=== PATIENT | male | born 1965 | race Caucasian/White ===

== ENCOUNTER 2017-04-02 23:22 | Inpatient (IN) | payer OTHER ==
--- NOTE | 2017-04-02 23:39 | ED ---
Psych HPI - General Source: patient, RN notes reviewed Mode of arrival: ambulatory Limitations: no limitations <Maurisio Montana - Last Filed: 04/03/17 02:29> <Bo Bone - Last Filed: 04/03/17 02:47> - General Stated Complaint: Mental Health Time Seen by Provider: 04/02/17 23:24 - History of Present Illness Initial Comments: 51-year-old male presents emergency Department chief complaint of psychiatric evaluation. Patient is brought to emergency department via EMS. Patient reportedly was having argument with his who called police. Patient reportedly made some threats that were about suicide. He states he is not suicidal states that he just made these during the argument. Patient states he is not depressed does have a history of anxiety which she takes Xanax 0.25 milligrams every morning. Patient states that he has no physical complaints this time. Denies any illicit drug use or alcohol abuse. (Maurisio Montana) Review of Systems ROS Other: All systems not noted in ROS Statement are negative. <Maurisio Montana - Last Filed: 04/03/17 02:29> ROS Other: All systems not noted in ROS Statement are negative. <Bo Bone - Last Filed: 04/03/17 02:47> ROS Statement: Those systems with pertinent positive or pertinent negative responses have been documented in the HPI. General Exam General appearance: alert, in no apparent distress Head exam: Present: atraumatic, normocephalic, normal inspection Eye exam: Present: normal appearance, PERRL, EOMI. Absent: scleral icterus, conjunctival injection, periorbital swelling ENT exam: Present: normal exam, normal oropharynx, mucous membranes moist, TM's normal bilaterally Neck exam: Present: normal inspection, full ROM. Absent: tenderness, meningismus, lymphadenopathy Respiratory exam: Present: normal lung sounds bilaterally. Absent: respiratory distress, wheezes, rales, rhonchi, stridor Cardiovascular Exam: Present: regular rate, normal rhythm, normal heart sounds. Absent: systolic murmur, diastolic murmur, rubs, gallop, clicks Neurological exam: Present: alert, oriented X3, CN II-XII intact Psychiatric exam: Present: normal affect, normal mood Skin exam: Present: warm, dry, intact, normal color. Absent: rash <Maurisio Motnana - Last Filed: 04/03/17 02:29> Medical Decision Making <Maurisio Montana - Last Filed: 04/03/17 02:29> <Bo Bone - Last Filed: 04/03/17 02:47> - Medical Decision Making On my interview, patient admits to being depressed and also admits suicidal ideation. I filed clinical certificate. I saw this patient in conjunction with the physician dental assistant. I performed independent history and physical exam. Agree with case management. (Bo Bone) - Lab Data Lab Results 04/03/17 Range/Units 00:35 Urine Opiates Screen Not Detected (NotDetected) Ur Oxycodone Screen Not Detected (NotDetected) Urine Methadone Screen Not Detected (NotDetected) Ur Propoxyphene Screen Not Detected (NotDetected) Ur Barbiturates Screen Not Detected (NotDetected) U Tricyclic Antidepress Not Detected (NotDetected) Ur Phencyclidine Scrn Not Detected (NotDetected) Ur Amphetamines Screen Not Detected (NotDetected) U Methamphetamines Scrn Not Detected (NotDetected) U Benzodiazepines Scrn Not Detected (NotDetected) Urine Cocaine Screen Not Detected (NotDetected) U Marijuana (THC) Screen Not Detected (NotDetected) Disposition <Maurisio Montana - Last Filed: 04/03/17 02:29> <Bo Bone - Last Filed: 04/03/17 02:47> Clinical Impression: Depression Disposition: ADMITTED IP TO THIS HOSP Condition: Stable
[2017-04-03] MEDS ORDERED: MAG HYDROX/AL HYDROX/SIMETH 30 ML CUP PO PRN (03:28)
[2017-04-03] MEDS ORDERED: LORazepam 1 MG TAB PO PRN (03:28)
[2017-04-03] MEDS ORDERED: MAGNESIUM HYDROXIDE 2,400 MG/10 ML CUP PO PRN (03:28)
[2017-04-03] MEDS ORDERED: ACETAMINOPHEN TAB 325 MG TAB PO PRN (03:28)
[2017-04-03] MEDS ORDERED: LORazepam 2 MG/ML SYRINGE IM PRN (03:34)
[2017-04-03] MEDS ORDERED: OLANZapine ODT 5 MG TAB PO PRN (03:36)
[2017-04-03 04:03] VITALS: BMI 29.0
[2017-04-03 09:01] LABS: Basophils % (A) 0 %; CH 32.3; CHCM 34.2; Eosinophils # (A) 0.1 k/uL (0-0.7); Eosinophils % (A) 2 %; HCT 50.5 % (39.0-53.0); HGB 17.3 gm/dL (13.0-17.5); Luc # (Auto) 0.14; Luc % (Auto) 2; Lymphocytes # (A) 1.5 k/uL (1.0-4.8); Lymphocytes % (A) 18 %; MCH 32.5 pg (25.0-35.0); MCHC 34.2 g/dL (31.0-37.0); MCV 94.9 fL (80.0-100.0); Mean Platelet Volume 6.6; Monocytes # (A) 0.7 k/uL (0-1.0); Monocytes % (A) 9 %; Neutrophils # (A) 5.8 k/uL (1.3-7.7); Neutrophils % (A) 70 %; RBC 5.31 m/uL (4.30-5.90); RDW 14.2 % (11.5-15.5); WBC 8.2 k/uL (3.8-10.6); WBC (Perox) 8.55
[2017-04-03 09:16] LABS: ALT 37 U/L (21-72); AST 32 U/L (17-59); Alkaline Phosphatase 79 U/L (38-126); Anion Gap 12 mmol/L; Blood Urea Nitrogen 6 mg/dL (9-20); Calcium 9.5 mg/dL (8.4-10.2); Carbon Dioxide 24 mmol/L (22-30); Chloride 107 mmol/L (98-107); Glucose 114 mg/dL (74-99); Non-African American GFR(MDRD) >60 (>60 ml/min/1.73 sqM); Potassium 4.3 mmol/L (3.5-5.1); Sodium 143 mmol/L (137-145); Total Bilirubin 0.9 mg/dL (0.2-1.3); Total Protein 7.5 g/dL (6.3-8.2)
[2017-04-03] MEDS: NICOTINE 14MG/24HR PATCH TRANSDERM SCH (09:56)
--- NOTE | 2017-04-03 10:11 | P.HP ---
Psychiatric H&P - . History & Physical: Allergies Allergy/AdvReac Type Severity Reaction Status Date / Time Codeine AdvReac Anaphylaxis Uncoded 04/03/17 03:23 Vital Signs Temp 96.8 F L 04/03/17 02:49 Pulse 87 04/03/17 02:49 Resp 18 04/03/17 02:49 BP 155/85 04/03/17 02:49 Pulse Ox 97 04/03/17 02:49 Intake & Output 04/02/17 04/03/17 04/03/17 18:59 06:59 18:59 Weight 97.1 kg Laboratory Last Values WBC 8.2 k/uL (3.8-10.6) 04/03/17 08:47 RBC 5.31 m/uL (4.30-5.90) 04/03/17 08:47 Hgb 17.3 gm/dL (13.0-17.5) 04/03/17 08:47 Hct 50.5 % (39.0-53.0) 04/03/17 08:47 MCV 94.9 fL (80.0-100.0) 04/03/17 08:47 MCH 32.5 pg (25.0-35.0) 04/03/17 08:47 MCHC 34.2 g/dL (31.0-37.0) 04/03/17 08:47 RDW 14.2 % (11.5-15.5) 04/03/17 08:47 Plt Count 218 k/uL (150-450) 04/03/17 08:47 Neutrophils % 70 % 04/03/17 08:47 Lymphocytes % 18 % 04/03/17 08:47 Monocytes % 9 % 04/03/17 08:47 Eosinophils % 2 % 04/03/17 08:47 Basophils % 0 % 04/03/17 08:47 Neutrophils # 5.8 k/uL (1.3-7.7) 04/03/17 08:47 Lymphocytes # 1.5 k/uL (1.0-4.8) 04/03/17 08:47 Monocytes # 0.7 k/uL (0-1.0) 04/03/17 08:47 Eosinophils # 0.1 k/uL (0-0.7) 04/03/17 08:47 Basophils # 0.0 k/uL (0-0.2) 04/03/17 08:47 Urine Opiates Screen Not Detected (NotDetected) 04/03/17 00:35 Ur Oxycodone Screen Not Detected (NotDetected) 04/03/17 00:35 Urine Methadone Screen Not Detected (NotDetected) 04/03/17 00:35 Ur Propoxyphene Screen Not Detected (NotDetected) 04/03/17 00:35 Ur Barbiturates Screen Not Detected (NotDetected) 04/03/17 00:35 U Tricyclic Antidepress Not Detected (NotDetected) 04/03/17 00:35 Ur Phencyclidine Scrn Not Detected (NotDetected) 04/03/17 00:35 Ur Amphetamines Screen Not Detected (NotDetected) 04/03/17 00:35 U Methamphetamines Scrn Not Detected (NotDetected) 04/03/17 00:35 U Benzodiazepines Scrn Not Detected (NotDetected) 04/03/17 00:35 Urine Cocaine Screen Not Detected (NotDetected) 04/03/17 00:35 U Marijuana (THC) Screen Not Detected (NotDetected) 04/03/17 00:35 Identifying Information: Mr. Nazario Slater is 51 year-old employed, male, lives with his , with past psychiatric history of anxiety disorder. The patient has been brought to ED last night by police after he verbalized suicidal threat in context of argument with his Chief complaint: "I am worried about losing my job" History of Present Illness: The patient has been brought in by ambulance last night after his called police because he verbalized suicidal threats in context of an argument with his . The patient explained that he found some visual text between his and her boss that made him think about his is cheating on him. He reports the text were private. Patient became very agitated and threatened to kill himself by saying "Do you want me to shoot myself." Patient explained he never meant to kill himself but it was more to get his attention and to feel she still cares about him. When patient arrived to ED he denies any thought to hurt himself or others but his didn't feel safe for him to come home. Patient was admitted initially involuntarily but I offered him to sing voluntarily and he accepted. Patient reports history of anxiety symptoms including times feeling tense, irritable, racing thoughts. He reports remote history of Panic attacks, but denies any history of social anxiety. Patient denies any symptoms of depression including depressed mood, feeling hopeless, worthless, or helpless. Patient denies sleep, or appetite disturbances. Patient denies lack of interest, or poor energy. Patient reported no suicidal thought, plans or intentions. Patient denies nightmares, flashbacks , hyper vigilance, avoidance behavior, or any specific phobias. Patient denied any current or prior episodes of manic symptoms, including episodes of: erratic uninhibited behavior, feeling grandiose or inflated self-esteem, flight of ideas , elated mood, or absence need to sleep due to increased goal directed activities. Patient denies any auditory/ visual / olfactory hallucinations. Pt denies paranoid ideations. No bizarre disorganized thoughts or behavior noticed, and no delusions could be elicited. Past Psychiatric History: Hospitalizations: Denies any prior psychiatric hospitalizations Medications Trials: Denies any prior trials of psychotropic medications besides has been placed on Xanax by his PCP for anxiety symptoms. He reports has been prescribed 0.5mg daily but he always take half tablet daily. Prior Psychiatrist: Denies Prior Psychotherapy: Denies Prior Suicidal attempts/ Thoughts: Denies Prior Self injurious behavior: Denies. Substance use history: The patient denies any history of substance use disorder and denies any prior treatment for alcohol or any drugs. He admitted to smoking cigarettes about half PPD for past 15 years Family history: He denies any family history of mental illness, suicidal acts, or substance use disorders. Social History: Current living situation: Lives with his Employment: Currently employed at 3 job due to financial burden Education: up to 11th grade Lutheran/ spiritual orientation: Pentecostalism Legal history: none Past history of trauma (physical/psychological/sexual): Pt denies history of abuse, or any psychological trauma. Past medical history: Coronary heart disease, stent 2008. Gall bladder removed Allergies: Codeine Mental status examination; Appearance: The patient appears stated age, dressed in hospital gown, no specific features. Gait/posture: Normal arm was swinging: No abnormal movements. Attitude and behavior: engaged, cooperative, fair eye contact. Motor activity: no psychomotor agitation Speech:normal rate, rhythm and articulation Mood: anxious Affect:constricted Thought form: goal-directed, linear, coherent. Thought content: Non-delusional, denies suicidal thoughts, denies homicidal thoughts, denies intentions or plans. Perception: Denies any auditory or visual hallucinations Attention: No impairment. Patient was able to repeat serial 7. Orientation: Patient patient was fully oriented to time place person and situation. Insight: Patient has fair insight about his psychiatric disorder. Judgment: Patient has fair judgment about his psychiatric treatment. History of Violence to self/others: Patient denies any history of violence or aggression toward self or others in the past 6 months. Patient strengths: Optimism to change Employment Housing Family support Patient weaknesses: Poor coping skills Limited social support Limited access to treatment Financial Formulation: This is a 51-year-old male with no prior history of psychiatric disorders besides anxiety, who presented to the ED after brought in by ambulance due to suicidal threat. The patient has no history of depression and no prior history of suicidal acts or thoughts. The patient apparently have multiple life stressors mainly financial burden and he had relationship problems with his . The patient in context of increased distress and argument with his about the text her boss was private messages he gets very agitated and threatened to kill himself to get his 's attention. The patient denies any suicidal thoughts and he denies any symptoms of depression or other mood disorders. Assessment and Diagnoses: Unspecified anxiety disorder Adjustment disorder Treatment/ plan: Patient has been admitted to inpatient psychiatric level of care for further monitoring and ensure safety. Contact and assess patient going back to is . Support patient with plan for aftercare including therapy and marriage counseling Check: as per unit routine Diet: Cardiac Lab ordered on admission: CMP, CBC, TSH - ordered, CBC reviewed UDS on admission- ordered and reviewed PSYCHIATRIC MEDICATIONS No psychiatric medications indicated at this time PRN medications: as per unit standards Non-psychiatric medications: As per medical team recommendations Psychoeducation about: Nature of psychiatric illnesses Adherence to treatment Participation in groups/ individual therapy, and other activities Consent obtained for treatment. 04/03/17 10:09
--- NOTE | 2017-04-03 14:24 | P.CONS ---
History of Present Illness - Reason for Consult Consult date: 04/03/17 Providers regarding CAD - History of Present Illness This 51-year-old gentleman with a past medical history of CAD stent myocardial infarction cholecystectomy being followed by Drs. Chavez in the outpatient setting was admitted for psychiatric evaluation. There is no history of chest pain palpitations shortness of breath. Occasional cough is reported. Patient continues smoke. Review of Systems REVIEW OF SYSTEMS: ENT: No diminished vision or hearing. CARDIOVASCULAR: Mentioned earlier. RESPIRATORY: Occasional cough. GI: No nauscea, vomiting or diarrhea. : No dysuria or retention. NERVOUS SYSTEM: No numbness or weakness. ALLERGY/IMMUNOLOGY: No asthma or hay fever. MUSCULOSKELETAL: As mentioned earlier. HEMATOLOGY/ONCOLOGY: No history of anemia. ENDOCRINE: No history of diabetes or hypothyroidism. CONSTITUTIONAL: As mentioned earlier. DERMATOLOGY: Negative. PSYCHIATRY: Mentioned earlier. RHEUMATOLOGY: Negative. Past Medical History Past Medical History: Myocardial Infarction ([place]) Last Myocardial Infarction Date:: 2009 History of Any Multi-Drug Resistant Organisms: None Reported Past Surgical History: Cholecystectomy Additional Past Surgical History / Comment(s): stent in heart Past Anesthesia/Blood Transfusion Reactions: No Reported Reaction Past Psychological History: Anxiety Smoking Status: Current every day smoker Past Alcohol Use History: None Reported Past Drug Use History: None Reported Medications and Allergies Home Medications Medication Instructions Recorded Confirmed Type Aspirin [Adult Low Dose Aspirin EC] 81 mg PO DAILY 04/03/17 04/03/17 History Multivitamins, Thera [Multivitamin 1 tab PO DAILY 04/03/17 04/03/17 History (formulary)] Media-3 Fatty Acids/Fish Oil [Fish 1 cap PO DAILY 04/03/17 04/03/17 History Oil 1,000 mg Softgel] Allergies Allergy/AdvReac Type Severity Reaction Status Date / Time Codeine AdvReac Anaphylaxis Uncoded 04/03/17 03:23 Physical Exam Vitals: Vital Signs Temp Pulse Pulse Resp BP BP Pulse Ox 04/03/17 02:49 96.8 F L 87 18 155/85 97 04/03/17 02:30 97.0 F L 78 20 162/89 04/02/17 23:25 97.4 F L 94 18 180/93 98 Intake and Output 04/02/17 04/03/17 04/03/17 22:59 06:59 14:59 Other: Weight 97.1 kg 97.2 kg Patient Weight 04/04/17 06:59 Weight 97.2 kg On exam, alert and oriented x3. HEENT: Conjunctivae normal. eyes normal. NECK: No JVD. No thyroid enlargement. No LNs CARDIOVASCULAR: S1, S2 muffled. No murmur RESPIRATION: Breath sounds diminished in the bases. Few rhonchi heard diffusely. No bronchial breathing. ABDOMEN: Soft, nontender . No guarding. no masses palpable. No ascites, No hepatosplenomegaly.Bowel sounds heard. LEGS: No edema. no swelling NERVOUS SYSTEM: Cranial N 2-12 grossly normal. Moves all 4 limbs. No focal deficits. No sensory deficit. No signs of cerebellar dysfucntion. Skin: no ulcer no rash Joints: No active swelling. No inflammation. Lymphatic system. No LN neck axilla or groin. Results CBC & Chem 7: 04/03/17 08:47 04/03/17 08:47 Labs: Abnormal Lab Results - Last 24 Hours (Table) 04/03/17 Range/Units 08:47 BUN 6 L (9-20) mg/dL Glucose 114 H (74-99) mg/dL Assessment and Plan Plan: Assessment 1. Depression 2. History of CAD stent 3. History and nicotine dependence 4. Possible COPD or bronchitis 5. History of cholecystectomy Plan this 50-year-old gentleman who was admitted to psychiatric problems at this time I would recommend to continue the home medications. Smoking cessation. Follow closely the primary physician Dr. Chavez. We will allow follow the patient closely with you while the patient inpatient. I'll be happy to review any abnormal labs. Thank you for letting us participate in the care of this patient.
[2017-04-04 01:47] VITALS: BP 127/90; PULSE 96; RESP 12; TEMP 98.2
[2017-04-04] MEDS: NICOTINE 14MG/24HR PATCH TRANSDERM SCH (09:19)
--- NOTE | 2017-04-04 11:19 | P.DS ---
Providers Date of admission: 04/03/17 02:29 Expected date of discharge: 04/04/17 Attending physician: Maria Luz Cross MD Consults: 04/03/17 03:28 Consult Physician Routine Consulting Provider: Riddhi Quispe Consult Reason/Comments: H&P, with medical follow up Do you want consulting provider notified?: Yes, Notify in am Primary care physician: Sandi Chavez Hospital Course: Discharge Diagnoses: Unspecified anxiety disorder, relationship distress with spouse Reason for Admission: Patient was admitted to the hospital after he threatened to commit suicide with a gun. 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 He states he threatened suicide to see what her reaction would be to this thinking that it would show whether she still loved him or not. Patient had no prior history of psychiatric treatment and no prior inpatient treatment. Patient has been using Xanax 0.25 mg daily since he had a heart attack with stent placement in 2007. 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 He states that he and his have not been spending as much time together and she also works cleaning homes during the day. Patient states that his thoughts of suicide with a gun to see how she would react are as he put it "stupid". Patient reports that he sees this was not the most appropriate way to discuss his concerns about their relationship. Patient denies any use of alcohol or drugs. Hospital Course: Patient was admitted to the hospital and routines laboratory studies were obtained, medical consultation was obtained and the patient was placed on routine precautions. Patient was also ordered group and activity therapy. Patient was not placed on any medication and was advised to not continue using Xanax as an outpatient. Patient has been attending groups and activities. Patient was seen today and states that he sees the need for marital counseling to improve their relationship, he no longer believes his was having an affair and sees his suicide threat as a "stupid move on my part". 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 Discharge Mental Status:Appearance/Attitude: Patient is neatly and appropriately dressed, makes good eye contact and is cooperative. Behavior: Patient does not display any psychomotor agitation or retardation. Speech/Language: Patient's speech is spontaneous and of normal volume and rhythm and he is coherent. Thought Process: Patient is goal-directed there is no evidence of any circumstantial or tangential thought and no loose associations or flight of ideas. Thought Content: Patient denies any auditory or visual hallucinations, no delusions or paranoid ideation are elicited. Patient discusses his suicide threat and states it was a stupid idea, he thought his was having an affair with a man that she cleans for after seeing texts on her phone. Patient states that he has been working 16 hours a day and he and his have little time to spend with each other. Patient reports no difficulty sleeping or eating. Suicidal/Homicidal Ideation: Patient denies any current suicidal or homicidal ideation and states that the guns of been removed from the home. Sensorium/Cognition: Patient is alert and oriented to person, place, and time and his memory is grossly intact. Mood/Affect: Patient's mood is euthymic and his affect is appropriate. Insight/Judgement: Patient's insight and judgment are fair. Laboratory Last Values WBC 8.2 k/uL (3.8-10.6) 04/03/17 08:47 RBC 5.31 m/uL (4.30-5.90) 04/03/17 08:47 Hgb 17.3 gm/dL (13.0-17.5) 04/03/17 08:47 Hct 50.5 % (39.0-53.0) 04/03/17 08:47 MCV 94.9 fL (80.0-100.0) 04/03/17 08:47 MCH 32.5 pg (25.0-35.0) 04/03/17 08:47 MCHC 34.2 g/dL (31.0-37.0) 04/03/17 08:47 RDW 14.2 % (11.5-15.5) 04/03/17 08:47 Plt Count 218 k/uL (150-450) 04/03/17 08:47 Neutrophils % 70 % 04/03/17 08:47 Lymphocytes % 18 % 04/03/17 08:47 Monocytes % 9 % 04/03/17 08:47 Eosinophils % 2 % 04/03/17 08:47 Basophils % 0 % 04/03/17 08:47 Neutrophils # 5.8 k/uL (1.3-7.7) 04/03/17 08:47 Lymphocytes # 1.5 k/uL (1.0-4.8) 04/03/17 08:47 Monocytes # 0.7 k/uL (0-1.0) 04/03/17 08:47 Eosinophils # 0.1 k/uL (0-0.7) 04/03/17 08:47 Basophils # 0.0 k/uL (0-0.2) 04/03/17 08:47 Sodium 143 mmol/L (137-145) 04/03/17 08:47 Potassium 4.3 mmol/L (3.5-5.1) 04/03/17 08:47 Chloride 107 mmol/L (98-107) 04/03/17 08:47 Carbon Dioxide 24 mmol/L (22-30) 04/03/17 08:47 Anion Gap 12 mmol/L 04/03/17 08:47 BUN 6 mg/dL (9-20) L 04/03/17 08:47 Creatinine 0.79 mg/dL (0.66-1.25) 04/03/17 08:47 Est GFR (MDRD) Af Amer >60 (>60 ml/min/1.73 sqM) 04/03/17 08:47 Est GFR (MDRD) Non-Af >60 (>60 ml/min/1.73 sqM) 04/03/17 08:47 Glucose 114 mg/dL (74-99) H 04/03/17 08:47 Calcium 9.5 mg/dL (8.4-10.2) 04/03/17 08:47 Total Bilirubin 0.9 mg/dL (0.2-1.3) 04/03/17 08:47 AST 32 U/L (17-59) 04/03/17 08:47 ALT 37 U/L (21-72) 04/03/17 08:47 Alkaline Phosphatase 79 U/L (38-126) 04/03/17 08:47 Total Protein 7.5 g/dL (6.3-8.2) 04/03/17 08:47 Albumin 4.6 g/dL (3.5-5.0) 04/03/17 08:47 TSH 0.864 mIU/L (0.465-4.680) 04/03/17 08:47 Urine Opiates Screen Not Detected (NotDetected) 04/03/17 00:35 Ur Oxycodone Screen Not Detected (NotDetected) 04/03/17 00:35 Urine Methadone Screen Not Detected (NotDetected) 04/03/17 00:35 Ur Propoxyphene Screen Not Detected (NotDetected) 04/03/17 00:35 Ur Barbiturates Screen Not Detected (NotDetected) 04/03/17 00:35 U Tricyclic Antidepress Not Detected (NotDetected) 04/03/17 00:35 Ur Phencyclidine Scrn Not Detected (NotDetected) 04/03/17 00:35 Ur Amphetamines Screen Not Detected (NotDetected) 04/03/17 00:35 U Methamphetamines Scrn Not Detected (NotDetected) 04/03/17 00:35 U Benzodiazepines Scrn Not Detected (NotDetected) 04/03/17 00:35 Urine Cocaine Screen Not Detected (NotDetected) 04/03/17 00:35 U Marijuana (THC) Screen Not Detected (NotDetected) 04/03/17 00:35 Risk Assessment: Patient's risk for self-harm is low due to no prior history of suicide attempts, no prior psychiatric treatment and the patient stating that he had no intent to act on the threats. Discharge Plan: Patient will return to live at home with his , he will be referred for marital counseling. I spoke with his who is also open to marital counseling. I recommended to the patient that he not continue on the Xanax. Patient was encouraged to follow-up with marital counseling as well as we discussed better ways to discuss concerns that he has with his about his marriage. Patient was not started on any psychotropic medication and therefore will not be receiving any prescriptions for psychotropic medication. He will continue on his low-dose aspirin daily, multivitamins and omega-3 fatty acids as he had been taking as an outpatient. Patient Condition at Discharge: Stable Plan - Discharge Summary New Discharge Prescriptions: Continue Multivitamins, Thera [Multivitamin (formulary)] 1 tab PO DAILY Aspirin [Adult Low Dose Aspirin EC] 81 mg PO DAILY Pingree-3 Fatty Acids/Fish Oil [Fish Oil 1,000 mg Softgel] 1 cap PO DAILY Discharge Medication List Aspirin [Adult Low Dose Aspirin EC] 81 mg PO DAILY 04/03/17 [History] Multivitamins, Thera [Multivitamin (formulary)] 1 tab PO DAILY 04/03/17 [History ] Pingree-3 Fatty Acids/Fish Oil [Fish Oil 1,000 mg Softgel] 1 cap PO DAILY [History] Follow up Appointment(s)/Referral(s): Sandi Chavez MD [Primary Care Provider] - 1-2 days Discharge Disposition: HOME SELF-CARE
== END 2017-04-04 12:42 | disposition home or self-care (01) | DRG 880 ==
LOC: EC 23:22 → 3MHU 04-03 02:29
PROVIDERS: ADMIT Psychiatry & Neurology Psychiatry; ATTEND Psychiatry & Neurology Psychiatry
DX: F41.9 Anxiety disorder, unspecified (principal); R45.851 Suicidal ideations; F43.20 Adjustment disorder, unspecified; I25.2 Old myocardial infarction; R45.4 Irritability and anger; R05 Cough; I25.10 Atherosclerotic heart disease of native coronary artery without angina pectoris; F17.210 Nicotine dependence, cigarettes, uncomplicated; Z79.82 Long term (current) use of aspirin; Z90.49 Acquired absence of other specified parts of digestive tract; Z88.5 Allergy status to narcotic agent; Z71.6 Tobacco abuse counseling; Z63.0 Problems in relationship with spouse or partner; Z79.899 Other long term (current) drug therapy; Z95.5 Presence of coronary angioplasty implant and graft; Z56.3 Stressful work schedule; Z63.79 Other stressful life events affecting family and household
CPT/HCPCS: 80053; 80306; 82075; 84443; 85025

== ENCOUNTER 2018-09-16 14:47 | Emergency (ER) | payer BC, OTHER ==
[2018-09-16 14:53] VITALS: TEMP 98.4
[2018-09-16] MEDS ORDERED: SODIUM CHLORIDE 0.9% 1,000 ML IV STA (15:55)
--- NOTE | 2018-09-16 16:00 | ED ---
Abdominal Pain HPI - General Chief Complaint: Abdominal Pain Stated Complaint: Abdominal pain/flank pain Time Seen by Provider: 09/16/18 15:31 Source: patient Mode of arrival: ambulatory Limitations: no limitations - History of Present Illness Initial Comments: Patient is a 52-year-old male presenting for abdominal discomfort. The patient states that he went to an urgent care where they told him they were concerned about kidney stone and sent here for further evaluation. The left sided flank discomfort started about one week ago and lasted for a day but then went away on it's own. Around 8 AM, it returned and felt like an 8 out of 10 pain which is sharp and fairly constant since then. The pain radiates down to the left testicle and is associated with nausea but no vomiting or diarrhea. He has not had any hematuria, fevers or chills although he admits to some minor urinary hesitancy. - Related Data Home Medications Medication Instructions Recorded Confirmed Aspirin [Adult Low Dose Aspirin EC] 81 mg PO DAILY 04/03/17 04/03/17 Multivitamins, Thera [Multivitamin 1 tab PO DAILY 04/03/17 04/03/17 (formulary)] [place]-3 Fatty Acids/Fish Oil [Fish 1 cap PO DAILY 04/03/17 04/03/17 Oil 1,000 mg Softgel] Previous Rx's Medication Instructions Recorded HYDROcodone/APAP 10-325MG [Beulah 1 tab PO Q6HR PRN 3 Days #12 tab 09/16/18 10-325] Ondansetron Odt [Zofran Odt] 4 mg PO Q8HR PRN #15 tab 09/16/18 Allergies Allergy/AdvReac Type Severity Reaction Status Date / Time Codeine AdvReac Anaphylaxis Uncoded 09/16/18 14:53 Review of Systems ROS Statement: Those systems with pertinent positive or pertinent negative responses have been documented in the HPI. Constitutional: Negative for chills, fatigue and fever. HENT: Negative for congestion. Respiratory: Negative for chest tightness, shortness of breath and wheezing. Negative for cough Cardiovascular: Negative for chest pain and palpitations. Gastrointestinal: Positive for abdominal pain and nausea. Negative for abdominal distention, diarrhea, and vomiting. Genitourinary: Negative for dysuria. Positive for urinary hesitancy Musculoskeletal: Negative for back pain, neck pain and neck stiffness. Skin: Negative for color change. Neurological: Negative for dizziness, speech difficulty, weakness and light- headedness. Psychiatric/Behavioral: Negative for agitation and confusion. Negative for anxiety ROS Other: All systems not noted in ROS Statement are negative. Past Medical History Past Medical History: Myocardial Infarction ([place]) Last Myocardial Infarction Date:: 2009 History of Any Multi-Drug Resistant Organisms: None Reported Past Surgical History: Cholecystectomy Additional Past Surgical History / Comment(s): stent in heart Past Anesthesia/Blood Transfusion Reactions: No Reported Reaction Past Psychological History: Anxiety Smoking Status: Current every day smoker Past Alcohol Use History: None Reported Past Drug Use History: None Reported General Exam - General Exam Comments Initial Comments: Constitutional: Pt appears well-developed and well-nourished. No distress. Head: Normocephalic and atraumatic. Eyes: EOM are normal. Neck: Normal range of motion. Neck supple. Cardiovascular: Normal rate, regular rhythm, S1 normal, S2 normal and normal heart sounds. Exam reveals no gallop and no friction rub. No murmur heard. Pulmonary/Chest: Effort normal and breath sounds normal. No tachypnea and no bradypnea. No respiratory distress. No wheezes or rales noted. Abdominal: Soft. Bowel sounds are normal. Pt exhibits no shifting dullness, no distension, no pulsatile liver, no fluid wave, no abdominal bruit and no ascites. There is no rigidity, no rebound, no guarding, no tenderness at McBurney's point and negative Phillip's sign. There is no tenderness. There is minor left-sided CVA tenderness Musculoskeletal: Normal range of motion. Neurological: Pt is alert and oriented to person, place, and time. No cranial nerve deficit. Skin: Skin is warm and dry. No rash noted. Pt is not diaphoretic. No erythema. No pallor. Psychiatric: Pt has a normal mood and affect. Pt behavior is normal. Thought content normal. Limitations: no limitations Course Vital Signs 09/16/18 09/16/18 09/16/18 14:50 16:55 18:14 Temperature 98.4 F Pulse Rate 107 H 92 87 Respiratory 22 15 18 Rate Blood Pressure 166/122 144/89 159/114 O2 Sat by Pulse 98 96 95 Oximetry Medical Decision Making - Medical Decision Making Laboratory studies showed that there is no significant leukocytosis and creatinine was measured at 1.28. This may be slightly elevated from patient's baseline but is unclear as there is no recent laboratory studies. There is no evidence of urinary tract infection from the urinalysis and CT of the abdomen was performed and showed left-sided obstructive uropathy with moderate left- sided hydroureter nephrosis secondary to a 5 mm stone at the left UVJ. As the patient's pain was well controlled and there was no evidence of infection, is felt that the patient will be admitted candidate for follow-up with urology.Explained all labs and diagnostic test results and that we will discharge the patient home and patient is to follow up with PCP in 1-2 days and return to the ED if symptoms worsen. Pt is agreeable to plan. Patient was also advised to return to emergency department if he had any fevers or chills, oliguria or intractable pain. - Lab Data Result diagrams: 09/16/18 16:07 09/16/18 16:07 Lab Results 09/16/18 09/16/18 09/16/18 Range/Units 16:07 16:07 16:20 WBC 11.3 H (3.8-10.6) k/uL RBC 5.47 (4.30-5.90) m/uL Hgb 16.3 (13.0-17.5) gm/dL Hct 51.0 (39.0-53.0) % MCV 93.1 (80.0-100.0) fL MCH 29.8 (25.0-35.0) pg MCHC 32.1 (31.0-37.0) g/dL RDW 14.8 (11.5-15.5) % Plt Count 201 (150-450) k/uL Neutrophils % 83 % Lymphocytes % 6 % Monocytes % 9 % Eosinophils % 1 % Basophils % 0 % Neutrophils # 9.3 H (1.3-7.7) k/uL Lymphocytes # 0.7 L (1.0-4.8) k/uL Monocytes # 1.0 (0-1.0) k/uL Eosinophils # 0.1 (0-0.7) k/uL Basophils # 0.0 (0-0.2) k/uL Sodium 140 (137-145) mmol/L Potassium 4.7 (3.5-5.1) mmol/L Chloride 107 (98-107) mmol/L Carbon Dioxide 25 (22-30) mmol/L Anion Gap 8 mmol/L BUN 12 (9-20) mg/dL Creatinine 1.28 H (0.66-1.25) mg/dL Est GFR (CKD-EPI)AfAm 73 (>60 ml/min/1.73 sqM) Est GFR (CKD-EPI)NonAf 63 (>60 ml/min/1.73 sqM) Glucose 101 H (74-99) mg/dL Calcium 9.5 (8.4-10.2) mg/dL Magnesium 1.9 (1.6-2.3) mg/dL Total Bilirubin 0.7 (0.2-1.3) mg/dL AST 24 (17-59) U/L ALT 24 (21-72) U/L Alkaline Phosphatase 89 (38-126) U/L Total Protein 7.5 (6.3-8.2) g/dL Albumin 4.4 (3.5-5.0) g/dL Urine Color Light Red Urine Appearance Turbid (Clear) Urine pH 5.5 (5.0-8.0) Ur Specific Hoskins 1.036 H (1.001-1.035) Urine Protein 1+ H (Negative) Urine Glucose (UA) Negative (Negative) Urine Ketones Negative (Negative) Urine Blood Small H (Negative) Urine Nitrite Negative (Negative) Urine Bilirubin Negative (Negative) Urine Urobilinogen 3.0 (<2.0) mg/dL Ur Leukocyte Esterase Negative (Negative) Urine WBC 4 (0-5) /hpf Amorphous Sediment Moderate H (None) /hpf Urine Mucus Many H (None) /hpf Disposition Clinical Impression: Kidney stone, Hydronephrosis Disposition: HOME SELF-CARE Condition: Good Prescriptions: HYDROcodone/APAP 10-325MG [Beulah 10-325] 1 tab PO Q6HR PRN 3 Days #12 tab PRN Reason: Pain Ondansetron Odt [Zofran Odt] 4 mg PO Q8HR PRN #15 tab PRN Reason: Nausea And Vomiting Is patient prescribed a controlled substance at d/c from ED?: Yes When asked, does pt state using other controlled substances?: No If prescribed controlled substance>3 days was MAPS reviewed?: Prescribed <3 Days If opioid is for acute pain is fill amount 7 days or less?: Yes If Rx opioid, was Start Talking consent form obtained?: Yes Referrals: Sandi Chavez MD [Primary Care Provider] - 1-2 days Jovanny Sr MD [STAFF PHYSICIAN] - 1-2 days Time of Disposition: 18:02
[2018-09-16 16:40] LABS: Amorphous Sediment,Urine Moderate /hpf; Appearance,Urine Turbid (Clear); Bilirubin,Urine Negative (Negative); Blood,Urine Small (Negative); Color,Urine Light Red; Glucose,Urine (UA) Negative (Negative); Ketones,Urine Negative (Negative); Leukocyte Esterase,Urine Negative (Negative); Mucus,Urine Many /hpf; Nitrite,Urine Negative (Negative); PH, Urine 5.5 (5.0-8.0); Protein,Urine 1+ (Negative); Specific Gravity,Urine 1.036 (1.001-1.035); WBC,Urine 4 /hpf (0-5)
[2018-09-16 16:40] LABS: Basophils % (A) 0 %; Eosinophils # (A) 0.1 k/uL (0-0.7); Eosinophils % (A) 1 %; HGB 16.3 gm/dL (13.0-17.5); Lymphocytes # (A) 0.7 k/uL (1.0-4.8); Lymphocytes % (A) 6 %; MCH 29.8 pg (25.0-35.0); MCHC 32.1 g/dL (31.0-37.0); MCV 93.1 fL (80.0-100.0); Mean Platelet Volume 7.1; Monocytes % (A) 9 %; Neutrophils # (A) 9.3 k/uL (1.3-7.7); Neutrophils % (A) 83 %; Platelet Count 201 k/uL (150-450); RBC 5.47 m/uL (4.30-5.90); RDW 14.8 % (11.5-15.5); WBC 11.3 k/uL (3.8-10.6)
[2018-09-16 16:45] LABS: Albumin 4.4 g/dL (3.5-5.0); Calcium 9.5 mg/dL (8.4-10.2); Magnesium 1.9 mg/dL (1.6-2.3); Potassium 4.7 mmol/L (3.5-5.1); Total Bilirubin 0.7 mg/dL (0.2-1.3); Total Protein 7.5 g/dL (6.3-8.2)
--- NOTE | 2018-09-16 17:35 | CT ---
EXAMINATION TYPE: CT abdomen pelvis wo con DATE OF EXAM: 09/16/2018 COMPARISON: None HISTORY: Left side flank pain. CT DLP: 736.5 mGycm Automated exposure control for dose reduction was used. TECHNIQUE: Helical acquisition of images was performed from the lung bases through the pelvis. FINDINGS: LUNG BASES: No significant abnormality is appreciated. LIVER/GB: Gallbladder is surgically absent. PANCREAS: No significant abnormality is seen. SPLEEN: No significant abnormality is seen. ADRENALS: No significant abnormality is seen. KIDNEYS: There is moderate left-sided hydroureteronephrosis secondary to a 5 mm obstructing calculus at the left ureterovesicular junction. The urinary bladder is decompressed. There is surrounding left perinephric fat stranding and enlargement of the left kidney, likely related to the acute obstructio n. No right-sided nephrolithiasis or hydronephrosis is seen. FREE AIR: No free air is visualized RETROPERITONEAL ADENOPATHY: No greater than 1 cm short axis lymph node is noted within the abdomen o r pelvis. REPRODUCTIVE ORGANS: No significant abnormality is seen OSSEOUS STRUCTURES: Mild multilevel degenerative changes of the spine are noted. BOWEL: No dilated large or small bowel is noted. Appendix is air-filled and within normal limits. OTHER: There is an infrarenal abdominal aortic ectasia measuring up to 2.8 x 2.8 cm. This does not ex tend into the common iliac vasculature. IMPRESSION: LEFT-SIDED OBSTRUCTIVE UROPATHY WITH MODERATE LEFT-SIDED HYDROURETERONEPHROSIS SECONDARY TO A 5 MM OF SHORTENING CALCULUS AT THE LEFT URETEROVESICULAR JUNCTION.
[2018-09-16] MEDS ORDERED: HYDROmorphone 0.5 MG/0.5 ML SYRINGE IVP STA (18:03)
[2018-09-16 18:18] VITALS: BP 159/114; PULSE 87; RESP 18
== END 2018-09-16 18:14 | disposition home or self-care (01) ==
LOC: EC 14:47
DX: N13.2 Hydronephrosis with renal and ureteral calculous obstruction (principal); I25.2 Old myocardial infarction; F17.200 Nicotine dependence, unspecified, uncomplicated; Z79.82 Long term (current) use of aspirin; Z88.5 Allergy status to narcotic agent
CPT/HCPCS: 36415; 74176; 80053; 81001; 83735; 85025; 87086; 96360; 96361; 99284

== ENCOUNTER → 2020-10-01 | Outpatient (CLI) | payer BC ==
--- NOTE | 2020-10-01 15:21 | XR ---
EXAMINATION TYPE: XR chest 2V DATE OF EXAM: 10/01/2020 COMPARISON: 09/18/2012 HISTORY: 54-year-old male with cough TECHNIQUE: Frontal and lateral views FINDINGS: The cardiomediastinal silhouette, aorta, and pulmonary vasculature are within normal limits. Hyperinf lation. No consolidation or pleural effusion.-Within the mid to lower thoracic spine. Cholecystectomy clips. IMPRESSION: COPD. No acute process seen.
== END | disposition home or self-care (01) ==
LOC: RADXRYALE 11:36
PROVIDERS: ATTEND Internal Medicine
DX: J44.9 Chronic obstructive pulmonary disease, unspecified (principal)
CPT/HCPCS: 71046

== ENCOUNTER 2022-05-10 09:31 | Inpatient (IN) | payer BC, OTHER ==
[2022-05-10 10:10] LABS: Basophils % (A) 1 %; Eosinophils # (A) 0.1 k/uL (0-0.7); Eosinophils % (A) 1 %; HCT 52.9 % (39.0-53.0); HGB 17.3 gm/dL (13.0-17.5); Lymphocytes # (A) 1.1 k/uL (1.0-4.8); Lymphocytes % (A) 13 %; MCHC 32.7 g/dL (31.0-37.0); Mean Platelet Volume 7.5; Monocytes # (A) 0.5 k/uL (0-1.0); Monocytes % (A) 6 %; Neutrophils # (A) 6.5 k/uL (1.3-7.7); Neutrophils % (A) 78 %; Platelet Count 214 k/uL (150-450); RBC 5.58 m/uL (4.30-5.90); RDW 14.1 % (11.5-15.5); WBC 8.3 k/uL (3.8-10.6)
[2022-05-10 10:29] LABS: ALT 15 U/L (4-49); AST 20 U/L (17-59); African American GFR (CKD) >90 (>60 ml/min/1.73 sqM); Albumin 4.8 g/dL (3.5-5.0); Alkaline Phosphatase 128 U/L (38-126); Anion Gap 16 mmol/L; Blood Urea Nitrogen 9 mg/dL (9-20); Calcium 9.8 mg/dL (8.4-10.2); Carbon Dioxide 23 mmol/L (22-30); Chloride 101 mmol/L (98-107); Glucose 114 mg/dL (74-99); Non-African American GFR(CKD) 84 (>60 ml/min/1.73 sqM); Potassium 4.5 mmol/L (3.5-5.1); Sodium 140 mmol/L (137-145); Total Bilirubin 0.5 mg/dL (0.2-1.3); Total Protein 7.9 g/dL (6.3-8.2)
[2022-05-10 10:31] LABS: Partial Thromboplastin Time 27.4 sec (22.0-30.0); Prothrombin Time 10.9 sec (9.0-12.0)
--- NOTE | 2022-05-10 10:33 | ED ---
General Adult HPI - General Chief complaint: Chest Pain Stated complaint: right side leg & flank pain Time Seen by Provider: 05/10/22 09:39 Source: patient, family, RN notes reviewed, old records reviewed Mode of arrival: ambulatory Limitations: no limitations - History of Present Illness Initial comments: 48-year-old male complaining of right-sided sharp chest pain which began prior to arrival. Pain is worse with deep inspiration. No associated dyspnea. No vomiting or diaphoresis. Patient has known coronary artery disease, he is a current smoker. Additionally his been complaining of right calf pain for the past one month. He states this is worse with ambulation and relieved by rest. He also has pain complaints while he is sleeping in the right foot. - Related Data Home Medications Medication Instructions Recorded Confirmed No Known Home Medications 05/10/22 05/10/22 Allergies Allergy/AdvReac Type Severity Reaction Status Date / Time codeine Allergy Anaphylaxis Verified 05/10/22 10:53 /Rash/Nause a Review of Systems ROS Statement: Those systems with pertinent positive or pertinent negative responses have been documented in the HPI. ROS Other: All systems not noted in ROS Statement are negative. Past Medical History Past Medical History: Myocardial Infarction ([place]) Last Myocardial Infarction Date:: 2009 History of Any Multi-Drug Resistant Organisms: None Reported Past Surgical History: Cholecystectomy, Heart Catheterization With Stent Additional Past Surgical History / Comment(s): stent in heart Past Anesthesia/Blood Transfusion Reactions: No Reported Reaction Past Psychological History: Anxiety Smoking Status: Current every day smoker Past Alcohol Use History: None Reported Past Drug Use History: None Reported General Exam Limitations: no limitations General appearance: alert, in no apparent distress Head exam: Present: atraumatic, normocephalic Eye exam: Present: normal appearance, PERRL ENT exam: Present: normal exam Neck exam: Present: normal inspection. Absent: tenderness, meningismus Respiratory exam: Present: normal lung sounds bilaterally. Absent: respiratory distress, wheezes Cardiovascular Exam: Present: regular rate, normal rhythm GI/Abdominal exam: Present: soft. Absent: distended, tenderness Extremities exam: Present: calf tenderness, other (Palpable pulses in the left foot, nonpalpable pulses right foot no Doppler single, delayed cap refill, warm calf, cool toes.). Absent: pedal edema Neurological exam: Present: alert, oriented X3, CN II-XII intact. Absent: motor sensory deficit Psychiatric exam: Present: normal affect, normal mood Skin exam: Present: warm, dry, intact. Absent: cyanosis, diaphoretic Course Vital Signs 05/10/22 05/10/22 05/10/22 09:39 10:43 11:43 Temperature 97.5 F L 97.9 F 98.2 F Pulse Rate 92 89 80 Respiratory 18 18 16 Rate Blood Pressure 189/91 180/114 152/108 O2 Sat by Pulse 100 99 97 Oximetry 05/10/22 13:15 Temperature 97.8 F Pulse Rate 79 Respiratory 16 Rate Blood Pressure 145/99 O2 Sat by Pulse 96 Oximetry EKG Findings - EKG Comments: EKG Findings:: EKG: Sinus rhythm with PVC rate of 90, [place] interval 153, QRS duration 88, QTC 411, no ST segment elevation, poor baseline secondary to artifact. Medical Decision Making - Medical Decision Making 56-year-old male history of tobacco use and hypertension presenting for evaluation of a right lateral chest pain which is sharp in nature and second complaint of pain in the right leg with ambulation over the past one month. Patient denies history of peripheral vascular disease. He has cap Refill which is delayed in the right foot, there is no palpable pulses. The ankle is warm the foot is somewhat cool to the touch. Patient states his symptoms in the leg and foot have been present for at least one month. I did perform imaging through the aorta and into the lower extremities. There is a infrarenal aortic aneurysm measuring 3.9 cm. Patient has an occlusion in the femoral artery on the right consistent with his pulse exam. There is some reconstitution distally. His workup otherwise is unremarkable. His chest pain is atypical and resolved without treatment. Ultrasound of the leg does show acute DVT. The patient is placed on high-dose heparin both for peripheral vascular disease and for DVT. He's admitted to Dr. Hamlin who is aware. I have paged out to vascular surgery at this time. - Lab Data Result diagrams: 05/10/22 10:01 05/10/22 10: Lab Results 05/10/22 05/10/22 05/10/22 Range/Units 10:01 10:01 10:01 WBC 8.3 (3.8-10.6) k/uL RBC 5.58 (4.30-5.90) m/uL Hgb 17.3 (13.0-17.5) gm/dL Hct 52.9 (39.0-53.0) % MCV 95.0 (80.0-100.0) fL MCH 31.0 (25.0-35.0) pg MCHC 32.7 (31.0-37.0) g/dL RDW 14.1 (11.5-15.5) % Plt Count 214 (150-450) k/uL MPV 7.5 Neutrophils % 78 % Lymphocytes % 13 % Monocytes % 6 % Eosinophils % 1 % Basophils % 1 % Neutrophils # 6.5 (1.3-7.7) k/uL Lymphocytes # 1.1 (1.0-4.8) k/uL Monocytes # 0.5 (0-1.0) k/uL Eosinophils # 0.1 (0-0.7) k/uL Basophils # 0.0 (0-0.2) k/uL PT 10.9 (9.0-12.0) sec INR 1.0 (<1.2) APTT 27.4 (22.0-30.0) sec Sodium 140 (137-145) mmol/L Potassium 4.5 (3.5-5.1) mmol/L Chloride 101 (98-107) mmol/L Carbon Dioxide 23 (22-30) mmol/L Anion Gap 16 mmol/L BUN 9 (9-20) mg/dL Creatinine 0.99 (0.66-1.25) mg/dL Est GFR (CKD-EPI)AfAm >90 (>60 ml/min/1.73 sqM) Est GFR (CKD-EPI)NonAf 84 (>60 ml/min/1.73 sqM) Glucose 114 H (74-99) mg/dL Calcium 9.8 (8.4-10.2) mg/dL Magnesium 2.0 (1.6-2.3) mg/dL Total Bilirubin 0.5 (0.2-1.3) mg/dL AST 20 (17-59) U/L ALT 15 (4-49) U/L Alkaline Phosphatase 128 H (38-126) U/L Troponin I (0.000-0.034) ng/mL Total Protein 7.9 (6.3-8.2) g/dL Albumin 4.8 (3.5-5.0) g/dL 05/10/22 Range/Units 10:01 WBC (3.8-10.6) k/uL RBC (4.30-5.90) m/uL Hgb (13.0-17.5) gm/dL Hct (39.0-53.0) % MCV (80.0-100.0) fL MCH (25.0-35.0) pg MCHC (31.0-37.0) g/dL RDW (11.5-15.5) % Plt Count (150-450) k/uL MPV Neutrophils % % Lymphocytes % % Monocytes % % Eosinophils % % Basophils % % Neutrophils # (1.3-7.7) k/uL Lymphocytes # (1.0-4.8) k/uL Monocytes # (0-1.0) k/uL Eosinophils # (0-0.7) k/uL Basophils # (0-0.2) k/uL PT (9.0-12.0) sec INR (<1.2) APTT (22.0-30.0) sec Sodium (137-145) mmol/L Potassium (3.5-5.1) mmol/L Chloride (98-107) mmol/L Carbon Dioxide (22-30) mmol/L Anion Gap mmol/L BUN (9-20) mg/dL Creatinine (0.66-1.25) mg/dL Est GFR (CKD-EPI)AfAm (>60 ml/min/1.73 sqM) Est GFR (CKD-EPI)NonAf (>60 ml/min/1.73 sqM) Glucose (74-99) mg/dL Calcium (8.4-10.2) mg/dL Magnesium (1.6-2.3) mg/dL Total Bilirubin (0.2-1.3) mg/dL AST (17-59) U/L ALT (4-49) U/L Alkaline Phosphatase (38-126) U/L Troponin I 0.022 (0.000-0.034) ng/mL Total Protein (6.3-8.2) g/dL Albumin (3.5-5.0) g/dL Critical Care Time Critical Care Time: Yes Total Critical Care Time: 35 Disposition Clinical Impression: Chest pain, AAA (abdominal aortic aneurysm), PVD (peripheral vascular disease), DVT (deep venous thrombosis) Disposition: ADMITTED IP TO THIS [facility] Instructions (If sedation given, give patient instructions): Chest Pain (ED), N onruptured Abdominal Aortic Aneurysm ([place]), Peripheral Vascular Disease (ED) Additional Instructions: Please return with any worsening or changing symptoms in the chest with a right leg. Any pain in the abdomen. You have been diagnosed with peripheral vascular disease and an abdominal aortic aneurysm. Please follow-up with vascular surgery as soon as possible. Please take aspirin daily. Is patient prescribed a controlled substance at d/c from ED?: No Referrals: Sandi Chavez MD [Primary Care Provider] - 1-2 days Alexsander Hobson DO [Doctor of Osteopathic Medicine] - 1-2 days Time of Disposition: 13:47
--- NOTE | 2022-05-10 10:54 | XR ---
EXAMINATION TYPE: XR chest 1V portable DATE OF EXAM: 05/10/2022 10:49 AM COMPARISON: Chest radiographs from 10/01/2020 TECHNIQUE: XR chest 1V portable Portable AP radiograph of the chest. CLINICAL INDICATION:Male, 56 years old with history of chest pain; FINDINGS: Lungs/Pleura: There is no evidence of pleural effusion, focal consolidation, or pneumothorax. Pulmonary vascularity: Unremarkable. Heart/mediastinum: Cardiomediastinal silhouette is unremarkable. Musculoskeletal: No acute osseous pathology. IMPRESSION: No acute cardiopulmonary disease/process.
[2022-05-10 11:45] VITALS: RESP 16
--- NOTE | 2022-05-10 12:10 | CT ---
EXAMINATION TYPE: CT angio tho/abd W Run Off DATE OF EXAM: 05/10/2022 COMPARISON: Prior CT abdomen and pelvis September 16, 2018 HISTORY: Chest pain with absent Rt pedal pulse CT DLP: 3531.5 mGycm, Automated Exposure Control for Dose Reduction was Utilized. CONTRAST: CTA scan of the thorax, abdomen and pelvis with bilateral lower extremity runoff is performed without oral and without and with IV Contrast, patient injected with 125 mL of Isovue 370. Three-D reconstru cted images created on an independent workstation and reviewed. FINDINGS: VASCULAR: Noncontrast images show no suspicious hyperdense material to suggest intramural hematoma. S atisfactory enhancement of the central pulmonary arteries. Normal three-vessel origin from the aortic arch without significant plaque or stenosis. Ascending aorta measures up to 3.7 cm in diameter. Rose nt celiac artery and SMA without significant stenosis. Patent bilateral single renal arteries without significant stenosis. There is infrarenal AAA measuring up to 3.9 cm AP diameter axial image 203. An eurysm measures 3.9 x 3.9 cm axial image 210. There is moderate to severe peripheral noncalcified evita que. Length of the aneurysm is approximately 7 to 8 cm without extension into the common iliac arteri es. Moderate peripheral plaque in the common iliac arteries bilaterally without significant stenosis. Small 1.7 cm aneurysm distal left common iliac artery axial image 255. No significant plaque or sten osis in the external iliac arteries bilaterally. Mild peripheral plaque in the left common femoral arteries. [id number] mixed plaque through the mid left superficial femoral artery. Focal moderate severe mixed plaque in the distal left superfici al femoral artery coronal image 96 without significant stenosis. Mild plaque in the left popliteal ar efrem without significant stenosis. Satisfactory bifurcation and trifurcation with good three-vessel f low in the left mid lung again two-vessel flow in the left distal leg through the left ankle. Mild peripheral plaque in the right sided femoral vessels. There is more prominent or severe noncalci fied plaque in the proximal right superficial femoral artery causing significant stenosis with eventu al complete occlusion beginning near axial image 378 right femoral proximal to mid diaphyseal level. There is nonvisualized flow distal to this up to the level of the right knee joint where there is viviane e reconstitution beginning narrow axial image 540. There is subsequent symmetric three-vessel flow to opposite left lower extremity in the mid leg and 2 vessel flow in the distal leg and ankle to the op posite left lower extremity. LUNGS: Lungs are grossly clear. No pleural effusion or pneumothorax seen bilaterally. MEDIASTINUM: No abnormal greater than 1 cm thoracic lymph nodes. No cardiomegaly or pericardial effus ion is seen. LIVER/GB: Cholecystectomy clips are redemonstrated. Biliary dilatation up to 19 mm in the rupal hepatis is slightly more prominent from prior. There is t apering towards the ampulla demonstrated PANCREAS: No significant abnormality is seen. SPLEEN: No significant abnormality is seen. ADRENALS: No significant abnormality is seen. KIDNEYS: No significant abnormality is seen. BOWEL: Roughly 1.8 cm duodenal diverticulum near the ampulla coronal image 61 is redemonstrated. Norm al-appearing appendix from the base of cecum is sternotomy noted. No suspicious bowel dilatation. PROSTATE/SEMINAL VESICLES: No gross abnormality seen. LYMPH NODES: No greater than 1cm abdominal or pelvic lymph nodes are appreciated. OSSEOUS STRUCTURES: No significant abnormality is seen. LOWER EXTREMITIES: No significant abnormality is seen. OTHER: No significant additional abnormality is seen. IMPRESSION: Significant stenosis in the proximal right superficial femoral artery with then complete occlusion extending from proximal to mid superficial femoral artery through the mid popliteal artery. Some reconstitution is then seen likely from collateral vessels at level of knee joint. Advise cardi ovascular surgical evaluation.
[2022-05-10] MEDS ORDERED: ASPIRIN 325 MG TAB PO STA (13:01)
--- NOTE | 2022-05-10 13:55 | US ---
EXAMINATION TYPE: US venous doppler duplex LE RT DATE OF EXAM: 05/10/2022 11:26 AM COMPARISON: CTA lower extremity 05/10/2022 CLINICAL HISTORY: pain. No history of blood clot or on blood thinners. SIDE PERFORMED: Right TECHNIQUE: The lower extremity deep venous system is examined utilizing real time linear array sonog thu with graded compression, doppler sonography and color-flow sonography. VESSELS IMAGED: Common Femoral Vein Deep Femoral Vein Greater Saphenous Vein * Femoral Vein Popliteal Vein Small Saphenous Vein * Proximal Calf Veins (* superficial vessels) Right Leg: Filling defect within the popliteal vein extending to the proximal proximal calf vein. In cidental note of occlusion of the right femoral artery and popliteal artery. The remainder of the str uctures are patent. IMPRESSION: 1. Right popliteal vein deep vein thrombus extending to the proximal calf vessels. 2. Occlusion of the superficial femoral artery extending into the popliteal artery as seen on prior CTA same day.
[2022-05-10] MEDS ORDERED: HEPARIN SODIUM 1,000 UN/ML (10ML VL) IV ONE (14:00)
[2022-05-10] MEDS ORDERED: HEPARIN SODIUM 1,000 UN/ML (10ML VL) IV PRN (14:00)
[2022-05-10] MEDS ORDERED: SODIUM CHLORIDE 0.9% 1,000 ML IV SCH (14:00)
[2022-05-10] MEDS ORDERED: HEPARIN SOD,PORK IN 0.45% NACL 25,000 UNIT in 0.45% NACL 1 250ML.BAG IV SCH (14:00)
[2022-05-10] MEDS ORDERED: NALOXONE 0.4 MG/ML 1 ML VIAL IV PRN (14:00)
[2022-05-10] MEDS ORDERED: ACETAMINOPHEN TAB 325 MG TAB PO PRN (14:00)
[2022-05-10 14:25] LABS: Prothrombin Time 10.7 sec (9.0-12.0)
[2022-05-10 15:10] VITALS: TEMP 98.1
[2022-05-10 16:03] VITALS: BP 146/92; PULSE 76
--- NOTE | 2022-05-10 16:42 | P.GSCN ---
History of Present Illness Consult date: 05/10/22 Reason for Consult: SFA occlusion Requesting physician: Nazario Doyle History of present illness: Patient is a pleasant 56-year-old male who presented to the emergency department today with complaints of right lower extremity pain. Patient states pain has been present for the last 2-3 weeks duration. Pain is at rest and with ambulation. He does have a past medical history of coronary artery disease status post [place] in 2004 and stenting. He denies any current medications. He has a current pack-a-day smoker for the last 47 years. He denies any recent injury, traveling or surgery. He had CT angiogram thoracic and abdominal aorta with runoff showing occlusion of the SFA with reconstitution with collaterals. Patient also underwent a venous duplex of the right lower extremity that showing mild right popliteal DVT extending into the proximal calf veins. He currently denies any shortness of breath, chest pain, abdominal pain, nausea vomiting, fevers or chills. Review of Systems A 14 point review systems was completed all pertinent positives and negatives as stated in the HPI. Past Medical History Past Medical History: Hyperlipidemia, Hypertension, Myocardial Infarction ([place]) Last Myocardial Infarction Date:: 2009 History of Any Multi-Drug Resistant Organisms: None Reported Past Surgical History: Cholecystectomy, Heart Catheterization With Stent Additional Past Surgical History / Comment(s): stent in heart Past Anesthesia/Blood Transfusion Reactions: No Reported Reaction Date of Last Stent Placement:: 2004 Past Psychological History: Anxiety Smoking Status: Current every day smoker Past Alcohol Use History: None Reported Past Drug Use History: None Reported - Past Family History Father Family Medical History: Cancer, Congestive Heart Failure (CHF), Diabetes Mellitus Mother Family Medical History: Cancer, Congestive Heart Failure (CHF), Diabetes Me llitus, Thyroid Disorder Medications and Allergies Home Medications Medication Instructions Recorded Confirmed Type Acetaminophen Tab [Tylenol] 650 mg PO Q6HR PRN tab 05/10/22 Rx Apixaban [Eliquis] 5 mg PO BID #60 tab 05/10/22 Rx Allergies Allergy/AdvReac Type Severity Reaction Status Date / Time codeine Allergy Anaphylaxis Verified 05/10/22 10:53 /Rash/Nause a Surgical - Exam Vital Signs Temp Pulse Resp BP Pulse Ox 97.5 F L 92 18 189/91 100 05/10/22 09:39 05/10/22 09:39 05/10/22 09:39 05/10/22 09:39 05/10/22 09:39 General appearance: The patient is alert, oriented, appears in no acute distress. HET: Head is normocephalic and atraumatic. Neck: Supple without lymphadenopathy. Trachea midline. No audible carotid bruit. Heart: S1 S2. Regular rate and rhythm. Lungs: Clear to auscultation bilaterally. Abdomen: Soft, nontender, nondistended. Extremities: Normal skin color and turgor. Bilateral extremities warm to the touch other than bilateral feet. Palpable bilateral femoral pulses, palpable left popliteal and dorsalis pedis pulse. Right lower extremity nonpalpable popliteal, posterior tibialis or dorsalis pedis pulse. Was able to obtain Doppler signal right popliteal, and posterior tibialis. Patient has full range of motion of bilateral lower extremities including wiggling his toes. Good strength and sensation intact. Neurological: No focal deficits. Strength and sensation are grossly intact. Results - Labs 05/10/22 10:01 05/10/22 10: Abnormal Lab Results - Last 24 Hours (Table) 05/10/22 Range/Units 10:01 Glucose 114 H (74-99) mg/dL Alkaline Phosphatase 128 H (38-126) U/L Diabetes panel 05/10/22 Range/Units 10:01 Sodium 140 (137-145) mmol/L Potassium 4.5 (3.5-5.1) mmol/L Chloride 101 (98-107) mmol/L Carbon Dioxide 23 (22-30) mmol/L BUN 9 (9-20) mg/dL Creatinine 0.99 (0.66-1.25) mg/dL Glucose 114 H (74-99) mg/dL Calcium 9.8 (8.4-10.2) mg/dL AST 20 (17-59) U/L ALT 15 (4-49) U/L Alkaline Phosphatase 128 H (38-126) U/L Total Protein 7.9 (6.3-8.2) g/dL Albumin 4.8 (3.5-5.0) g/dL Calcium panel 05/10/22 Range/Units 10:01 Calcium 9.8 (8.4-10.2) mg/dL Albumin 4.8 (3.5-5.0) g/dL Pituitary panel 05/10/22 Range/Units 10:01 Sodium 140 (137-145) mmol/L Potassium 4.5 (3.5-5.1) mmol/L Chloride 101 (98-107) mmol/L Carbon Dioxide 23 (22-30) mmol/L BUN 9 (9-20) mg/dL Creatinine 0.99 (0.66-1.25) mg/dL Glucose 114 H (74-99) mg/dL Calcium 9.8 (8.4-10.2) mg/dL Adrenal panel 05/10/22 Range/Units 10:01 Sodium 140 (137-145) mmol/L Potassium 4.5 (3.5-5.1) mmol/L Chloride 101 (98-107) mmol/L Carbon Dioxide 23 (22-30) mmol/L BUN 9 (9-20) mg/dL Creatinine 0.99 (0.66-1.25) mg/dL Glucose 114 H (74-99) mg/dL Calcium 9.8 (8.4-10.2) mg/dL Total Bilirubin 0.5 (0.2-1.3) mg/dL AST 20 (17-59) U/L ALT 15 (4-49) U/L Alkaline Phosphatase 128 H (38-126) U/L Total Protein 7.9 (6.3-8.2) g/dL Albumin 4.8 (3.5-5.0) g/dL - Imaging Comments: CT angiogram thoracic abdominal with runoff report significant stenosis in the proximal right superficial femoral artery with complete occlusion extending from proximal to mid superficial femoral artery through the mid popliteal artery. Some reconstitution been seen likely from collateral vessels at the level of the knee joint. Right lower extremity don't reports right popliteal vein deep vein thrombus extending to the proximal calf vessels. Occlusion of the superficial femoral artery extending into the popliteal artery as seen on prior CTA PE Assessment and Plan Assessment: 1. Occlusion of the SFA, with reconstitution likely from collateral vessels seen on CT angiogram with runoff. This is likely chronic. 2. Acute right lower extremity DVT 3. Current one pack per day smoker for last 47 years 4. History of coronary artery disease status post [place] 2004 with cardiac stenting Plan: 1. Agree with IV heparin, patient may be a transition to oral anticoagulation 2. No indication for any acute vascular surgical intervention, will plan for outpatient follow-up. Patient may require fem-pop bypass further workup to be done outpatient 3. Recommend smoking cessation 4. Patient is clear from vascular surgery for discharge Thank you for this consultation. The impression and plan of care has been dictated as directed. I performed a history and examination of this patient, discussed the same with the dictator. I agree with the dictator's note ,documented as a scribe. Any additional findings or plans will be noted.
[2022-05-10] MEDS ORDERED: APIXABAN 5 MG TAB PO STA (17:23)
--- NOTE | 2022-05-11 03:51 | HP ---
HISTORY AND PHYSICAL This is a combined history and physical and discharge summary. CHIEF COMPLAINTS: Right-sided leg and flank pain. HISTORY OF PRESENT ILLNESS: This is a 56-year-old gentleman with a past medical history of hypertension, hyperlipidemia, being followed by Dr. Chavez in the outpatient setting, is complaining of right leg pain and right flank pain for some time. The patient came to [facility] because of claudication and the patient was found to have right leg DVT. The ultrasound which was done in the ER and reviewed personally by me showed right popliteal vein DVT extending to the proximal calf muscles. Occlusion of the superior femoral artery was also noted. Dr. Ford saw the patient and recommended the patient be discharged. The patient will be started on Eliquis and to be followed up in the outpatient setting with Dr. Chavez and Dr. Ford. PAST MEDICAL HISTORY: Reviewed, include hypertension, hyperlipidemia. REVIEW OF SYSTEMS: A 14-point review of systems is negative except as mentioned earlier. FAMILY HISTORY: History of cancer, CHF. SOCIAL HISTORY: History of smoking. CURRENT MEDICATIONS: Also reviewed, which include Tylenol. PHYSICAL EXAMINATION: VITAL SIGNS: Pulse is 76, blood pressure 140/92, respirations 16. HEENT: Conjunctivae normal. NECK: No JVD. CARDIOVASCULAR: S1, S2 muffled. RESPIRATIONS: Breath sounds diminished at the bases. ABDOMEN: Soft, nontender. LEGS: Some minimal swelling present otherwise. NERVOUS SYSTEM: No focal deficits. SKIN: No ulcer, rash, bleeding. JOINTS: No active deforming arthropathy. LABS: Reviewed. ASSESSMENT: 1. Acute deep venous thrombosis of the right leg with claudication. 2. History of nicotine dependence. RECOMMENDATIONS AND DISCUSSION: This is a 56-year-old gentleman who presented with multiple medical issues, we will monitor the patient closely. The patient is started on IV heparin. Dr. Ford recommended Eliquis and the patient will be discharged home with the following medications. Diet is cardiac. Activity as tolerated. Follow up with Dr. Ford as advised. Follow up with Dr. Chavez as recommended. Medications are Eliquis 5 mg p.o. b.i.d. To be followed up in the outpatient setting. MMODL / IJN: [id number] /
--- NOTE | 2022-05-11 07:53 | US ---
EXAMINATION TYPE: US arterial LE single level DATE OF EXAM: 05/10/2022 4:38 PM CLINICAL HISTORY: right lower extremity pain, nonpalpable DP pulse. CT angio done today. Right leg pain. DVT right leg, PRITI's not done right. Doppler Waveforms: Right: Absent popliteal level and possible phasicity below this Left: Multiphasic Pulse Volume Recording: Pressure Gradients: Ankle-Brachial Indices: Right: Due to DVT, no PRITI's done Left: 1.02 Toe Brachial Indices: Right: No waveform to take pressure Left: 0.76 IMPRESSION: Correlating with same day runoff there is arterial vascular occlusion between the groin and right knee
== END 2022-05-10 17:54 | disposition home or self-care (01) | DRG 300 ==
LOC: EC 09:31 → 3SCARD 14:00
PROVIDERS: ADMIT Internal Medicine; ATTEND Internal Medicine
DX: I70.211 Atherosclerosis of native arteries of extremities with intermittent claudication, right leg (principal); I82.431 Acute embolism and thrombosis of right popliteal vein; I82.4Z1 Acute embolism and thrombosis of unspecified deep veins of right distal lower extremity; I71.43 Infrarenal abdominal aortic aneurysm, without rupture; I25.10 Atherosclerotic heart disease of native coronary artery without angina pectoris; E78.5 Hyperlipidemia, unspecified; F17.210 Nicotine dependence, cigarettes, uncomplicated; Z71.6 Tobacco abuse counseling; I10 Essential (primary) hypertension; I25.2 Old myocardial infarction; Z79.01 Long term (current) use of anticoagulants; Z82.49 Family history of ischemic heart disease and other diseases of the circulatory system; Z95.5 Presence of coronary angioplasty implant and graft; Z88.5 Allergy status to narcotic agent
CPT/HCPCS: 36415; 71045; 71275; 75635; 80053; 83735; 84484; 85025; 85610; 85730; 93005; 93922; 96374; 99291

== ENCOUNTER → 2023-06-11 | Outpatient (CLI) | payer OTHER | END | disposition home or self-care (01) | LOC: RADMRIMAIN 13:20 | PROVIDERS: ATTEND Family Medicine | DX: Z53.9 Procedure and treatment not carried out, unspecified reason (principal) ==